=== PATIENT | male | born 1955 | race Caucasian/White ===

== ENCOUNTER 2024-05-12 13:00 | Emergency (ER) | payer OTHER ==
[~2024-05-12] VITALS: Ht 182.9 cm; Wt 145.4 kg
[2024-05-12 13:01] VITALS: BP 136/75; PULSE 70; RESP 18; TEMP 98.3; O2SAT 95
== END 2024-05-12 14:34 | disposition left against medical advice (07) ==
LOC: EMS 13:10
DX: F10.229 Alcohol dependence with intoxication, unspecified (principal); F31.9 Bipolar disorder, unspecified; F20.9 Schizophrenia, unspecified
CPT/HCPCS: 99281; Z7502